=== PATIENT | male | born 1960 | race Two or more races ===

== ENCOUNTER 2020-03-15 13:09 | Inpatient (IN) | payer MEDICAID ==
[~2020-03-15] VITALS: Ht 167.6 cm; Wt 97.9 kg
[~2020-03-15 13:09] MED LIST: ASPI81CH43 PO; LISI-646 PO; MET25T PO; METF-372 PO
[2020-03-15 13:49] LABS: Basophils # (auto) 0 10 ^3/uL (0-0.2); Basophils % (auto) 0.5 % (0.0-2.0); Eosinophils # (auto) 0.1 10 ^3/uL (0-0.8); Eosinophils % (auto) 1.9 % (0.0-7.0); Hematocrit 26.7 % (41.0-53.0); Lymphocytes # (auto) 0.8 10 ^3/uL (0.4-5.4); Lymphocytes % (auto) 19.1 % (10.0-50.0); Mean Corpuscular Hemoglobin 32.1 pg (28.0-32.0); Mean Corpuscular Hgb Conc. 33.5 g/dL (32.0-36.0); Mean Corpuscular Volume 95.8 fL (80.0-100.0); Monocytes # (auto) 0.5 10 ^3/uL (0-1.3); Monocytes % (auto) 11.5 % (0.0-12.0); Neutrophils # (auto) 2.7 10 ^3/uL (1.6-8.6); Platelet Count (auto) 125 10^3/uL (140-450); Red Blood Cells 2.79 10^6/uL (4.5-5.90); Red Cell Distribution Width 13.7 % (11.8-14.3); White Blood Cell 4.1 10^3/uL (4.4-10.8)
[2020-03-15 14:07] LABS: Albumin 2.7 g/dL (3.4-5.0); BUN/Creatinine Ratio 30.1; Calcium 8.1 mg/dL (8.5-10.1); Potassium 5.1 mmol/L (3.5-5.1)
[2020-03-15 14:10] LABS: Bilirubin, Total 0.4 mg/dL (0.2-1.0); Total Protein 7.8 g/dL (6.4-8.2)
[2020-03-15] MEDS ORDERED: cloNIDine HCL 0.1 MG TAB PO ONE (18:30)
[2020-03-15] MEDS ORDERED: PIPERACILLIN-TAZOB 3.375GM 100 ML IV ONE (19:45)
[2020-03-15 20:41] LABS: INR 1.15 (0.9-1.15); Partial Thromboplastin Time 27.1 sec (23.64-32.05)
[2020-03-15] MEDS ORDERED: ONDANSETRON HCL 4 MG/2 ML VIAL IV PRN (21:30)
[2020-03-15] MEDS ORDERED: MORPHINE SULF INJ 2 MG/ML SYRINGE 1ML IV PRN (21:30)
[2020-03-15] MEDS ORDERED: ACETAMINOPHEN 325 MG TAB PO PRN (21:30)
[2020-03-15] MEDS ORDERED: DOCUSATE SOD 100 MG CAP PO PRN (21:30)
[2020-03-15] MEDS ORDERED: HYDROcodone-ACET 5/325MG TAB PO PRN (21:30)
[2020-03-15] MEDS ORDERED: DEXTROSE (50%) 50ML SYRG IV PRN (21:30)
[2020-03-15] MEDS ORDERED: cloNIDine HCL 0.1 MG TAB PO PRN (21:45)
[2020-03-15] MEDS: METOPROLOL TARTRATE 25 MG TAB PO SCH (22:21)
[2020-03-16] MEDS: InsuLIN REG 1unit/0.01ml Soln (100units/ml) SC SCH ×5 (00:13→22:14)
[2020-03-16] MEDS: CLINDAMYCIN 600MG IV 50 ML IV SCH ×4 (00:24→17:19)
[2020-03-16] MEDS: ACCU-CHEK COMFORT CURVE STRIP VI SCH ×5 (05:41→22:12)
[2020-03-16 06:54] LABS: Basophils # (auto) 0 10 ^3/uL (0-0.2); Basophils % (auto) 0.6 % (0.0-2.0); Eosinophils # (auto) 0.1 10 ^3/uL (0-0.8); Eosinophils % (auto) 2.8 % (0.0-7.0); Hematocrit 25.4 % (41.0-53.0); Hemoglobin 8.7 g/dL (13.5-17.5); Lymphocytes # (auto) 0.9 10 ^3/uL (0.4-5.4); Lymphocytes % (auto) 25.6 % (10.0-50.0); Mean Corpuscular Hemoglobin 32.4 pg (28.0-32.0); Mean Corpuscular Hgb Conc. 34.1 g/dL (32.0-36.0); Mean Corpuscular Volume 95.1 fL (80.0-100.0); Monocytes # (auto) 0.4 10 ^3/uL (0-1.3); Monocytes % (auto) 11.8 % (0.0-12.0); Neutrophils # (auto) 2.1 10 ^3/uL (1.6-8.6); Neutrophils % (auto) 59.2 % (37.0-80.0); Platelet Count (auto) 121 10^3/uL (140-450); Red Blood Cells 2.67 10^6/uL (4.5-5.90); Red Cell Distribution Width 13.5 % (11.8-14.3); White Blood Cell 3.5 10^3/uL (4.4-10.8)
[2020-03-16 07:13] LABS: Calcium 8.1 mg/dL (8.5-10.1); Potassium 4.2 mmol/L (3.5-5.1)
[2020-03-16 07:18] LABS: BUN/Creatinine Ratio 29.3
[2020-03-16 09:00] VITALS: BP 155/75
--- NOTE | 2020-03-16 09:35 | NUR ---
Patient arrived to , patient alert and oriented with left foot swelling 3+ pitting edema purple tone to foot, warm, pulses palpable, patient no c/o pain as he was medicated in ER. Patient eating breakfast.
[2020-03-16] MEDS ORDERED: CLOPIDOGREL BISULFATE 75 MG TAB PO SCH (10:00)
[2020-03-16] MEDS ORDERED: FUROSEMIDE 40 MG/4 ML VIAL IV SCH (10:00)
[2020-03-16] MEDS: ASPirin 81 mg TAB PO SCH (10:17)
[2020-03-16] MEDS: METOPROLOL TARTRATE 25 MG TAB PO SCH ×2 (10:17→22:12)
[2020-03-16] MEDS: LISINOPRIL 20 MG TAB PO SCH (10:18)
[2020-03-16 13:00] VITALS: BP 121/71
[2020-03-16] MEDS ORDERED: MORPHINE SULF INJ 2 MG/ML SYRINGE 1ML IV PRN (13:00)
[2020-03-16] MEDS ORDERED: DEXTROSE (50%) 50ML SYRG IV PRN (13:00)
[2020-03-16 14:06] LABS: % Iron Saturation 11.7 % (20-55)
--- NOTE | 2020-03-16 14:08 | NUR ---
Stool specimen - Informed patient that we need stool sample, he verbalized understanding, sterile cup placed at patients bedside.
[2020-03-16 17:00] VITALS: BP 178/96
[2020-03-16 17:03] LABS: Alcohol, Urine < 3.0 mg/dL (0-10); Amphetamine Screen, Urine NEGATIVE (NEGATIVE); Barbiturate Scree,Urine NEGATIVE (NEGATIVE); Benzodiazephine Screen, Urine NEGATIVE (NEGATIVE); Cannabinoid Screen, Urine NEGATIVE (NEGATIVE); Cocaine Screen, Urine NEGATIVE (NEGATIVE); Opiate Scree,Urine NEGATIVE (NEGATIVE); Phencyclidine Screen, Urine NEGATIVE (NEGATIVE)
[2020-03-16] MEDS ORDERED: ATORVASTATIN 20 MG TAB PO SCH (18:00)
--- NOTE | 2020-03-16 19:20 | NUR ---
Opening Shift Note Received report from emelyn Haider RN. Assumed care of patient, awake and alert. No S/S of distress/SOB or pain. Instructed on POC and to call for assist PRN, will continue to monitor for changes Q1hr and PRN. Bed placed in lowest position and call light within reach.
[2020-03-16 20:00] VITALS: BP 157/83
[2020-03-16 22:00] VITALS: BP 157/83
[2020-03-17] MEDS: CLINDAMYCIN 600MG IV 50 ML IV SCH ×3 (01:03→11:26)
[2020-03-17 05:44] VITALS: BP 134/74
[2020-03-17] MEDS: ACCU-CHEK COMFORT CURVE STRIP VI SCH ×2 (06:31→11:26)
[2020-03-17] MEDS: InsuLIN REG 1unit/0.01ml Soln (100units/ml) SC SCH ×2 (06:42→11:26)
[2020-03-17 07:11] LABS: Basophils # (auto) 0 10 ^3/uL (0-0.2); Basophils % (auto) 0.3 % (0.0-2.0); Eosinophils # (auto) 0.1 10 ^3/uL (0-0.8); Eosinophils % (auto) 2.9 % (0.0-7.0); Hematocrit 27.2 % (41.0-53.0); Hemoglobin 9.3 g/dL (13.5-17.5); Lymphocytes # (auto) 1.1 10 ^3/uL (0.4-5.4); Lymphocytes % (auto) 29.1 % (10.0-50.0); Mean Corpuscular Hemoglobin 32.5 pg (28.0-32.0); Mean Corpuscular Hgb Conc. 34.3 g/dL (32.0-36.0); Mean Corpuscular Volume 94.8 fL (80.0-100.0); Monocytes # (auto) 0.5 10 ^3/uL (0-1.3); Monocytes % (auto) 12.5 % (0.0-12.0); Neutrophils % (auto) 55.2 % (37.0-80.0); Nucleated Red Blood Cells % 0.1 %; Platelet Count (auto) 136 10^3/uL (140-450); Red Blood Cells 2.87 10^6/uL (4.5-5.90); Red Cell Distribution Width 13.6 % (11.8-14.3); White Blood Cell 3.7 10^3/uL (4.4-10.8)
[2020-03-17 07:32] LABS: Potassium 4.6 mmol/L (3.5-5.1)
[2020-03-17 07:42] LABS: BUN/Creatinine Ratio 29.9
[2020-03-17 07:43] LABS: Calcium 8.1 mg/dL (8.5-10.1); Magnesium 2.1 mg/dL (1.6-2.6)
[2020-03-17 09:00] VITALS: BP 165/89
[2020-03-17] MEDS: ASPirin 81 mg TAB PO SCH (09:15)
[2020-03-17] MEDS: METOPROLOL TARTRATE 25 MG TAB PO SCH (09:15)
[2020-03-17] MEDS: LISINOPRIL 20 MG TAB PO SCH (09:16)
--- NOTE | 2020-03-17 12:21 | NUR ---
Patient ambulates regularly to bathroom with no problems
[2020-03-17 13:00] VITALS: BP 167/95
[2020-03-17] MEDS ORDERED: MET25T PO (14:02)
[2020-03-17] MEDS ORDERED: ASPI81CH43 PO (14:02)
[2020-03-17] MEDS ORDERED: METF-370 PO (14:02)
[2020-03-17] MEDS ORDERED: CLIN300C8 PO (14:02)
[2020-03-17] MEDS ORDERED: LISI-646 PO (14:02)
[2020-03-17] MEDS ORDERED: SACC250C PO (14:02)
[2020-03-17] MEDS ORDERED: FER325T PO (14:09)
[2020-03-17 14:13] VITALS: BP 151/83
--- NOTE | 2020-03-17 14:26 | NUR ---
pharmacy stated they received order for patients medications, they are in process of filling
--- NOTE | 2020-03-17 14:45 | NUR ---
Patient iv discontinued, skin intact, patient tolerated well, patient given DC instructions, I stressed to patients the importance of following up with his PCP, he stated that he is going to his Drs tomorrow and he will give him all the paperwork, I also discussed checking blood sugars which patient is used to patient states he already has supplies at home. Patient verbalized understanding of all DC instructions.
[2020-03-17 15:02] VITALS: BP 155/78
--- NOTE | 2020-03-17 15:13 | NUR ---
patient received medications from pharmacy, patient given instructions, patient verbalized understanding, patient ambulated (per his request) with [employer] field technician out of building. Patient stated his mode of transport is always the bus, he stated he knows the time and has money to take bus.
== END 2020-03-17 15:24 | disposition home or self-care (01) | DRG 199 ==
LOC: ER 13:09 → OVERFLOW 13:10 → WEST WING 03-16 08:51
PROVIDERS: ADMIT Hospitalist; ATTEND Internal Medicine
DX: I16.0 Hypertensive urgency (principal); L03.116 Cellulitis of left lower limb; I50.32 Chronic diastolic (congestive) heart failure; E11.65 Type 2 diabetes mellitus with hyperglycemia; E66.01 Morbid (severe) obesity due to excess calories; D63.8 Anemia in other chronic diseases classified elsewhere; Z91.19 Patient's noncompliance with other medical treatment and regimen; Z68.32 Body mass index [BMI] 32.0-32.9, adult
CPT/HCPCS: 36415; 71046; 80048; 80053; 80061; 80307; 82962; 83036; 83540; 83550; 83605; 83735; 83880; 85025; 85610; 85730; 87040; 93005; 93971; 96365; 96375; G0378; J1815; J2405; J2543; J3490